=== PATIENT | male | born 2000 | race Two or more races ===

== ENCOUNTER 2023-05-26 10:10 | Emergency (ER) | payer OTHER ==
[~2023-05-26] VITALS: Ht 175.3 cm; Wt 71.1 kg
[2023-05-26 11:27] VITALS: BP 105/84; PULSE 61; RESP 16; TEMP 98.2; O2SAT 98
[2023-05-26] MEDS ORDERED: IBUP-1454 PO (11:59)
== END 2023-05-26 12:09 | disposition home or self-care (01) ==
LOC: ER 10:10
DX: S56.912A Strain of unspecified muscles, fascia and tendons at forearm level, left arm, initial encounter (principal); S93.602A Unspecified sprain of left foot, initial encounter; Z79.1 Long term (current) use of non-steroidal anti-inflammatories (NSAID); W22.8XXA Striking against or struck by other objects, initial encounter; Y93.89 Activity, other specified; Y92.89 Other specified places as the place of occurrence of the external cause; Y99.8 Other external cause status
CPT/HCPCS: 73090; 73630